=== PATIENT | female | born 1955 | race Caucasian/White ===

== ENCOUNTER 2019-01-31 15:46 | Emergency (ER) | payer MEDICAID ==
[~2019-01-31] VITALS: Ht 154.9 cm; Wt 70.3 kg
[2019-01-31 15:54] VITALS: BP_SYST 123
[2019-01-31 17:16] LABS: BASOPHILS # (AUTO) 0.1 K/uL (0.0-0.2); BASOPHILS % (AUTO) 0.9 % (0.0-2.0); EOSINOPHILS # (AUTO) 0.1 K/uL (0.0-0.4); EOSINOPHILS % (AUTO) 1.4 % (0.0-4.0); HEMOGLOBIN 12.1 g/dL (12.0-16.0); LYMPHOCYTES # (AUTO) 2.1 K/uL (1.0-5.5); LYMPHOCYTES % (AUTO) 20.6 % (20.5-51.5); MEAN CORPUSCULAR HEMOGLOBIN 27 pg (27-31); MEAN CORPUSCULAR HGB CONC 33 % (32-36); MEAN CORPUSCULAR VOLUME 83 fL (79.0-98.0); MONOCYTES # (AUTO) 0.6 K/uL (0.0-1.0); MONOCYTES % (AUTO) 5.6 % (1.7-9.3); NEUTROPHILS # (AUTO) 7.3 K/uL (1.8-7.7); NEUTROPHILS % (AUTO) 71.5 % (40.0-70.0); PLATELET COUNT (AUTO) 404 K/uL (130-430); RED BLOOD CELL COUNT(AUTO) 4.47 MIL/uL (4.2-6.2); RED CELL DISTRIBUTION WIDTH 13.6 % (9.0-15.0); WHITE BLOOD COUNT (AUTO) 10.2 K/uL (4.8-10.8)
[2019-01-31 18:04] LABS: CALCIUM 9.2 mg/dL (8.4-11.0); CREATININE 0.48 mg/dL (0.55-1.30); POTASSIUM 4.6 mmol/L (3.5-5.1)
[2019-01-31 18:15] LABS: ALBUMIN 2.9 g/dL (3.4-4.8); TOTAL BILIRUBIN 0.3 mg/dL (0.0-1.0)
[2019-01-31] MEDS ORDERED: NACL 0.9% 1,000 ML IV ONE (18:15)
[2019-01-31] MEDS ORDERED: KETOROLAC TROMETHAMINE 30 MG VIAL IVP ONE (18:30)
[2019-01-31] MEDS ORDERED: methylPREDNISolone SOD SUCC/PF 62.5 MG/ML VIAL IVP ONE (18:30)
[2019-01-31] MEDS ORDERED: traMADol HCL HCL 50 MG TABLET (ULTRAM) PO ONE (20:30)
[2019-01-31 20:34] VITALS: BP_SYST 123
== END 2019-01-31 20:34 | disposition home or self-care (01) ==
LOC: SED 15:46
DX: M54.12 Radiculopathy, cervical region (principal); M54.40 Lumbago with sciatica, unspecified side
CPT/HCPCS: 36415; 72100; 80053; 85025; 96374; 96375; 99284; J1885; J2930; J7030

== ENCOUNTER 2019-03-17 18:14 | Emergency (ER) | payer MEDICAID ==
[~2019-03-17] VITALS: Ht 154.9 cm; Wt 70.3 kg
[2019-03-17 18:15] VITALS: BP_SYST 149
[2019-03-17] MEDS ORDERED: traMADol HCL HCL 50 MG TABLET (ULTRAM) PO ONE (22:00)
[2019-03-17 23:39] VITALS: BP_SYST 149
== END 2019-03-17 23:39 | disposition home or self-care (01) ==
LOC: SED 18:14
DX: M54.5 Low back pain (principal); M54.12 Radiculopathy, cervical region
CPT/HCPCS: 99283; J7030